=== PATIENT | female | born 1995 | race American Indian/Alaskan Native ===

== ENCOUNTER 2019-03-06 11:05 | Emergency (ER) | payer SELFPAY ==
--- NOTE | 2019-03-06 11:17 | Event Note ---
ED Screening Note Date of service: 03/06/19 Time: 11:14 ED Screening Note: This is a 23 y.o. F. that presents to the ER with abdominal pain and intermittent chest pain. Reports chest pain for several months when she drink cold liquids. States abdominal pain is sharp and intermittent. LMP 02/21/19 Patient states she woke up this morning with sharp pain that is now resolved. This initial assessment/diagnostic orders/clinical plan/treatment(s) is/are subject to change based on patients health status, clinical progression and re- assessment by fellow clinical providers in the ED. Further treatment and workup at subsequent clinical providers discretion. Patient/guardian urged not to elope from the ED as their condition may be serious if not clinically assessed and managed. Initial orders include: Labs and CXR
[2019-03-06 12:13] LABS: Hematocrit 40.2 % (30.3-42.9); Hemoglobin 13.3 gm/dl (10.1-14.3); Mean Corpuscular HGB Conc 33 % (30-34); Mean Corpuscular Volume 97 fl (79-97); Platelet Count 353 K/mm3 (140-440); Red Blood Count 4.16 M/mm3 (3.65-5.03)
--- NOTE | 2019-03-06 12:13 | Emergency Department Report ---
ED Female HPI - General Chief complaint: Abdominal Pain Stated complaint: LOWER ABD CRAMPING/CHEST PAIN Time Seen by Provider: 03/06/19 11:14 Source: patient Mode of arrival: Ambulatory Limitations: No Limitations - History of Present Illness Initial comments: Sven is a healthy 23 yo female who presents with chest pain and pelvic cramping. Chest pain has been intermittent for several months, associated with food and drink intake. For the past 2 weeks she has had pelvic cramping since her last menstrual cycle at the beginning of the month. She is not sexually active. Has been abstinent for one year. MD Complaint: vaginal bleeding, pelvic pain -: Gradual, week(s) (2) Severity: mild Severity scale (0 -10): 5 Quality: cramping Consistency: intermittent Improves with: none Worsens with: none Are you Now?: No Associated Symptoms: vaginal bleeding - Related Data Previous Rx's Medication Instructions Recorded Last Taken Type medroxyPROGESTERone ACETATE 10 mg PO DAILY 10 Days #10 tablet 03/06/19 Unknown Rx [Provera] Allergies Allergy/AdvReac Type Severity Reaction Status Date / Time No Known Allergies Allergy Verified 03/06/19 11:16 ED Review of Systems ROS: Stated complaint: LOWER ABD CRAMPING/CHEST PAIN Other details as noted in HPI Comment: All other systems reviewed and negative Constitutional: denies: fever, malaise Respiratory: denies: cough Cardiovascular: denies: chest pain ED Past Medical Hx - Past Medical History Previous Medical History?: No - Surgical History Past Surgical History?: No - Social History Smoking Status: Never Smoker Substance Use Type: None - Medications Home Medications: Home Medications Medication Instructions Recorded Confirmed Last Taken Type medroxyPROGESTERone ACETATE 10 mg PO DAILY 10 Days #10 tablet 03/06/19 Unknown Rx [Provera] ED Physical Exam - General Limitations: No Limitations General appearance: alert, in no apparent distress, other (appears well, appears comfortable) - Head Head exam: Present: atraumatic, normocephalic - Eye Eye exam: Present: normal appearance - ENT ENT exam: Present: mucous membranes moist - Neck Neck exam: Present: normal inspection, full ROM - Respiratory Respiratory exam: Present: normal lung sounds bilaterally. Absent: respiratory distress, wheezes, rales, rhonchi - Cardiovascular Cardiovascular Exam: Present: regular rate, normal rhythm, normal heart sounds. Absent: systolic murmur, diastolic murmur, rubs, gallop - GI/Abdominal GI/Abdominal exam: Present: soft, normal bowel sounds. Absent: distended, tenderness, guarding, rebound - Extremities Exam Extremities exam: Present: normal inspection - Back Exam Back exam: Present: normal inspection - Neurological Exam Neurological exam: Present: alert, oriented X3 - Psychiatric Psychiatric exam: Present: normal affect, normal mood - Skin Skin exam: Present: warm, dry, intact, normal color. Absent: rash ED Course Vital Signs 03/06/19 11:13 Temperature 98.4 F Pulse Rate 72 Respiratory 16 Rate Blood Pressure 112/62 O2 Sat by Pulse 98 Oximetry ED Medical Decision Making - Lab Data Result diagrams: 03/06/19 11:27 03/06/19 11:27 - Medical Decision Making 1. Chest pain associated with food and drink over the last few months. Suggestive of heartburn and GERD. Given supportive care instructions. 2. Pelvic cramping with spotting: serum test negative. I do not suspect PID with history of abstinence. Differential diagnosis includes uterine fibroid, endometriosis. Referred to manager nursing. prescribed Provera for patient's convenience and comfort with erratic bleeding I have reviewed labs. All within normal limits. Critical care attestation.: If time is entered above; I have spent that time in minutes in the direct care of this critically ill patient, excluding procedure time. ED Disposition Clinical Impression: Heartburn, Dysfunctional uterine bleeding Disposition: - TO HOME OR SELFCARE Is pt being admited?: No Does the pt Need Aspirin: No Condition: Stable Instructions: Dysfunctional Uterine Bleeding (ED) Prescriptions: medroxyPROGESTERone ACETATE [Provera] 10 mg PO DAILY 10 Days #10 tablet Referrals: [facility] [Outside] - 3-5 Days
[2019-03-06 12:21] LABS: Alanine Aminotransferase 7 units/L (7-56); Albumin 4.6 g/dL (3.9-5); BUN/Creatinine Ratio 18; Blood Urea Nitrogen 11 mg/dL (7-17); Calcium 9.3 mg/dL (8.4-10.2); Hemolysis Index 7
--- NOTE | 2019-03-06 13:13 | XRay Report ---
CHEST 2 VIEWS INDICATION: chest pain. COMPARISON: None FINDINGS: Support devices: None. Heart: Within normal limits. Lungs/pleura: No acute air space or interstitial disease. No pneumothorax. Additional findings: None. IMPRESSION: 1. No acute findings. Signer Name: Alejandro Valentino MD Signed: 03/06/2019 1:09 PM Workstation Name: [id number]
[2019-03-06 13:28] VITALS: BP 98/38
[2019-03-06 17:48] LABS: Eosinophils # (Auto) 0.3 K/mm3 (0.0-0.4); Eosinophils % (Auto) 5.4 % (0.0-4.3); Lymphocytes # (Auto) 2.1 K/mm3 (1.2-5.4); Lymphocytes % (Auto) 39.6 % (13.4-35.0); Monocytes # (Auto) 0.4 K/mm3 (0.0-0.8)
[2019-03-06 17:50] LABS: Basophils % (Auto) 0.5 % (0.0-1.8)
== END 2019-03-06 13:28 | disposition home or self-care (01) ==
LOC: ED 11:05
DX: N93.8 Other specified abnormal uterine and vaginal bleeding (principal); R12 Heartburn
CPT/HCPCS: 36415; 71046; 80053; 83690; 84703; 85025

== ENCOUNTER 2020-06-11 03:08 | Emergency (ER) | payer SELFPAY ==
[2020-06-11 05:10] LABS: Blood Urea Nitrogen 8 mg/dL (7-17); Calcium 9.6 mg/dL (8.4-10.2); Hemolysis Index 1
[2020-06-11 05:16] LABS: BUN/Creatinine Ratio 13
--- NOTE | 2020-06-11 05:50 | XRay Report ---
CHEST 1 VIEW INDICATION: Chest Pain. COMPARISON: None FINDINGS: SUPPORT DEVICES: None. HEART: Within normal limits. LUNGS/PLEURA: No acute air space or interstitial disease. ADDITIONAL FINDINGS: None. IMPRESSION: 1. No acute findings. Signer Name: Alejandro Valentino MD Signed: 06/11/2020 5:45 AM Workstation Name: [id number]
[2020-06-11 06:04] LABS: Basophils % (Auto) 0.6 % (0.0-1.8); Eosinophils # (Auto) 0.1 K/mm3 (0.0-0.4); Eosinophils % (Auto) 1.8 % (0.0-4.3); Hematocrit 39.5 % (30.3-42.9); Hemoglobin 13.2 gm/dl (10.1-14.3); Lymphocytes # (Auto) 2.5 K/mm3 (1.2-5.4); Lymphocytes % (Auto) 31.7 % (13.4-35.0); Mean Corpuscular HGB Conc 33 % (30-34); Mean Corpuscular Volume 98 fl (79-97); Monocytes # (Auto) 0.5 K/mm3 (0.0-0.8); Monocytes % (Auto) 6.6 % (0.0-7.3); Platelet Count 341 K/mm3 (140-440); Red Blood Count 4.05 M/mm3 (3.65-5.03); Red Cell Distribution Width 13.6 % (13.2-15.2)
--- NOTE | 2020-06-11 09:16 | Emergency Department Report ---
ED General Adult HPI - General Chief complaint: Alcohol Stated complaint: POTENTIAL ALCOHOL POISONING Time Seen by Provider: 06/11/20 08:44 Source: patient Mode of arrival: Ambulatory Limitations: No Limitations - History of Present Illness Initial comments: 24 year old female with no significant pmhx presents to ED c/o spitting up blood. Patient states that around 2pm yesterday she was out drinking. She states she had few mixed drinks followed by few shots of rum. She states she started to clearing her throat after drinking because she started to feel nauseous and she states each time she cleared her throat and would spit, the sputum was bloody. But denied coughing or coughing up blood. She states this happened about 8-9 times including when she first arrived to ED. She states its was mainly BRB. She states she had been having intermittent substernal chest pain for 1 week but after drinking yesterday it was intermittent but more frequent. She report intermittent abd cramping and she states she did vomiting x 1 after she got home from drinking but the emesis was nonbloody. She denies any SOB, cough, fever, chills, bloody stools, UTI symptoms or any other symptoms at this time. MD Complaint: Bloody sputum/Nausea/ETOH -: Gradual (yesterday around 2pm) - Related Data Previous Rx's Medication Instructions Recorded Last Taken Type Famotidine [Pepcid] 20 mg PO BID #30 tablet 06/11/20 Unknown Rx Ondansetron [Zofran Odt] 4 mg PO Q8HR PRN #12 tab.rapdis 06/11/20 Unknown Rx Allergies Allergy/AdvReac Type Severity Reaction Status Date / Time No Known Allergies Allergy Verified 03/06/19 11:16 ED Review of Systems ROS: Stated complaint: POTENTIAL ALCOHOL POISONING Other details as noted in HPI Comment: All other systems reviewed and negative Constitutional: denies: chills, fever Eyes: denies: eye pain, eye discharge, vision change ENT: throat pain Respiratory: denies: cough, orthopnea, shortness of breath, SOB with exertion, SOB at rest, wheezing Cardiovascular: chest pain. denies: palpitations, dyspnea on exertion, orthopnea, edema, syncope Gastrointestinal: abdominal pain, nausea, vomiting Genitourinary: denies: urgency, dysuria, discharge Musculoskeletal: denies: back pain, joint swelling, arthralgia Skin: denies: rash, lesions Neurological: denies: headache, weakness, paresthesias Psychiatric: denies: anxiety, depression Hematological/Lymphatic: denies: easy bleeding, easy bruising ED Past Medical Hx - Past Medical History Previous Medical History?: No - Surgical History Past Surgical History?: No - Social History Smoking Status: Former Smoker Substance Use Type: Alcohol, Marijuana - Medications Home Medications: Home Medications Medication Instructions Recorded Confirmed Last Taken Type Famotidine [Pepcid] 20 mg PO BID #30 tablet 06/11/20 Unknown Rx Ondansetron [Zofran Odt] 4 mg PO Q8HR PRN #12 tab.rapdis 06/11/20 Unknown Rx ED Physical Exam - General Limitations: No Limitations General appearance: alert, in no apparent distress - Head Head exam: Present: atraumatic, normocephalic, normal inspection - Eye Eye exam: Present: normal appearance, PERRL, EOMI Pupils: Present: normal accommodation - ENT ENT exam: Present: normal exam, mucous membranes moist - Neck Neck exam: Present: normal inspection, full ROM - Respiratory Respiratory exam: Present: normal lung sounds bilaterally, other (Mild ttp sternal area). Absent: respiratory distress - Cardiovascular Cardiovascular Exam: Present: regular rate, normal rhythm, normal heart sounds - GI/Abdominal GI/Abdominal exam: Present: soft. Absent: distended, tenderness - Extremities Exam Extremities exam: Present: normal inspection - Back Exam Back exam: Present: normal inspection - Neurological Exam Neurological exam: Present: alert, oriented X3, CN II-XII intact - Psychiatric Psychiatric exam: Present: normal affect - Skin Skin exam: Present: intact ED Course Vital Signs 06/11/20 06/11/20 03:16 10:33 Temperature 98.3 F 97.5 F L Pulse Rate 89 70 Respiratory 20 19 Rate Blood Pressure 103/62 Blood Pressure 128/67 [Right] O2 Sat by Pulse 96 99 Oximetry - Reevaluation(s) Reevaluation #1: 06/11/20 09:38 Patient states that since being in ED throat is now just sore from constantly clearing her throat. Her chest pressure is better. She is no longer nauseous or having abd pain. No vomiting during stay. Her prescreening labs reviewed -- CBC unremarkable. BMP unremarkable. serum ETOH/acetaminophen, and salicylate level within normal limits. EKG shows normal sinus rhythm without any signs of acute ischemic changes or STEMI or significant dysrhythmia. LFTs/lipase added. UA still pending. Patient given a dose of Pepcid. 06/11/20 10:21 UDS +marijuanna, UA negative UTI, hcg negative, trop nl, and lipase nl. ED Medical Decision Making - Lab Data Result diagrams: 06/11/20 03:52 06/11/20 03:52 - EKG Data EKG shows normal: sinus rhythm Rate: normal - EKG Data Interpretation: normal EKG - Radiology Data Radiology results: report reviewed Findings [facility] [address] [place] [address] XRay Report Signed Patient: JAMIE GUERRERO MR#: [id number] : 1995 Acct:[id number] Age/Sex: 24 / F ADM Date: 06/11/20 Loc: ED Attending Dr: Ordering Physician: EVANGELINA HAYDEN MD Date of Service: 06/11/20 Procedure(s): XR chest 1V ap Accession Number(s): [id number] cc: EVANGELINA HAYDEN MD Fluoro Time In Minutes: CHEST 1 VIEW INDICATION: Chest Pain. COMPARISON: None FINDINGS: SUPPORT DEVICES: None. HEART: Within normal limits. LUNGS/PLEURA: No acute air space or interstitial disease. ADDITIONAL FINDINGS: None. IMPRESSION: 1. No acute findings. Signer Name: Alejandro Valentino MD Signed: 06/11/2020 5:45 AM Workstation Name: [id number] Transcribed By: JW Dictated By: Alejandro Valentino MD Electronically Authenticated By: Alejandro Valentino MD Signed Date/Time: 06/11/20544 DD/ 4 TD/TT: Patient: JAMIE GUERRERO MR#: [id number] : 1995 Acct:[id number] Age/Sex: 24 / F ADM Date: 06/11/20 Loc: ED Attending Dr: Ordering Physician: EVANGELINA HAYDEN MD Date of Service: 06/11/20 Procedure(s): XR chest 1V ap Accession Number(s): [id number] cc: EVANGELINA HAYDEN MD Fluoro Time In Minutes: CHEST 1 VIEW INDICATION: Chest Pain. COMPARISON: None FINDINGS: SUPPORT DEVICES: None. HEART: Within normal limits. LUNGS/PLEURA: No acute air space or interstitial disease. ADDITIONAL FINDINGS: None. IMPRESSION: 1. No acute findings. Signer Name: Alejandro Valentino MD Signed: 06/11/2020 5:45 AM Workstation Name: [id number] Transcribed By: JEB Dictated By: Alejandro Valentino MD Electronically Authenticated By: Alejandro Valentino MD Signed Date/Time: 06/11/20544 DD/ 4 TD/TT: - Medical Decision Making 24 year old female with no significant pmhx presents to ED c/o spitting up blood. Patient states that around 2pm yesterday she was out drinking. She states she had few mixed drinks followed by few shots of rum. She states she started clearing her throat after drinking because she started to feel nauseous and she states each time she cleared her throat and would spit, the sputum was bloody. She states that she was not coughing or coughing up blood. She states this happened about 8-9 times including when she first arrived to ED. She states its was mainly BRB. She states she had been having intermittent substernal chest pain for 1 week but after drinking yesterday it was intermittent but more frequent. She report intermittent abd cramping and she states she did vomiting x 1 after she got home from drinking but emesis was nonbloody. she denies any SOB, cough, fever, chills, UTI symptoms or any other symptoms at this time. Patient currently resting comfortably and is not in any acute pain or respiratory distress. She is not toxic, ill-appearing and does not appear to be significant dehydrated. Vital signs have been stable throughout the stay. Chest x-ray shows nothing acute. EKG shows normal sinus rhythm without any acute ischemic changes, STEMI or acute dysrhythmias. Her labs including a UA and a UDS including salicylate level acetaminophen level were unremarkable. T roponin was negative. Patient's history, physical exam, current condition and diagnostic testing does not suggest PE, acute coronary syndrome, perforated peptic ulcer, esophageal rupture, aortic dissection, significant pneumonia or any other significant pathology requiring further testing, admission, emergent consult at this time. Discussed lab results, suspected diagnosis and treatment plan with patient. Patient stable at time of discharge. She will be given referral to local primary care doctor for follow-up. Critical care attestation.: If time is entered above; I have spent that time in minutes in the direct care of this critically ill patient, excluding procedure time. ED Disposition Clinical Impression: Pharyngitis, Esophagitis, Atypical chest pain Disposition: - TO HOME OR SELFCARE Is pt being admited?: No Does the pt Need Aspirin: No Condition: Stable Instructions: Esophagitis, Nonspecific Chest Pain, Adult, [id number], Pharyngitis, [id number], Chest Pain (ED) Additional Instructions: Take the medications prescribed to you as directed. Drink lots of water today. I would recommend no alcohol for the next few days. Follow up with PCP in next f ew days. Return to ED if symptoms changes or worsens. Prescriptions: Famotidine [Pepcid] 20 mg PO BID #30 tablet Ondansetron [Zofran Odt] 4 mg PO Q8HR PRN #12 tab.rapdis PRN Reason: Nausea Referrals: DEVON GUALLPA MD [Staff Physician] - 3-5 Days Forms: Work/School Release Form(ED) Time of Disposition: 10:25
[2020-06-11] MEDS ORDERED: FAMOTIDINE 20 MG TAB PO ONE (09:30)
[2020-06-11] MEDS ORDERED: ACETAMINOPHEN 500 MG TAB PO ONE (09:42)
[2020-06-11 09:48] LABS: Amphetamine Screen,Urine Negative; Benzodiazepines Screen,Urine Negative; Cocaine Screen,Urine Negative; Methadone Screen,Urine Negative; Opiate Screen,Urine Negative
[2020-06-11 09:55] LABS: Bilirubin,Urine NEG (Negative); Blood,Urine NEG (Negative); Color,Urine Amber (Yellow); Mucus,Urine 1+ /HPF
[2020-06-11 10:01] LABS: Cannabinoid Screen,Urine Positive
[2020-06-11 10:07] LABS: Alanine Aminotransferase 6 units/L (7-56); Albumin 4.5 g/dL (3.9-5)
[2020-06-11 10:09] LABS: Bilirubin,Direct < 0.2 mg/dL (0-0.2)
[2020-06-11 10:36] VITALS: BP 128/67
== END 2020-06-11 10:39 | disposition home or self-care (01) ==
LOC: ED 03:08
DX: J02.9 Acute pharyngitis, unspecified (principal); K20.90 Esophagitis, unspecified without bleeding; R07.89 Other chest pain; F12.90 Cannabis use, unspecified, uncomplicated; Z79.899 Other long term (current) drug therapy; Z87.891 Personal history of nicotine dependence
CPT/HCPCS: 36415; 71045; 80048; 80076; 80307; 80320; 81001; 83690; 84484; 84703; 85025; 93005; G0480